=== PATIENT | female | born 1995 | race Caucasian/White ===

== ENCOUNTER 2024-01-16 14:50 | Emergency (ER) | payer OTHER, BC ==
[~2024-01-16] VITALS: Ht 170.2 cm; Wt 65.8 kg
[2024-01-16 15:36] VITALS: BP 119/70; TEMP 98.3; O2SAT 99
== END 2024-01-16 15:31 | disposition home or self-care (01) ==
LOC: ER 14:54
DX: M54.6 Pain in thoracic spine (principal); R51.9 Headache, unspecified; V43.52XA Car driver injured in collision with other type car in traffic accident, initial encounter; Y93.89 Activity, other specified; Y92.89 Other specified places as the place of occurrence of the external cause; Y99.8 Other external cause status